=== PATIENT | female | born 1975 | race Two or more races ===

== ENCOUNTER 2021-07-09 10:20 | Inpatient (IN) | payer OTHER ==
[~2021-07-09] VITALS: Ht 149.9 cm; Wt 72.6 kg
[2021-07-09] MEDS ORDERED: ESCITALOPRAM OX10 MG PO (13:40)
== END 2021-07-29 12:07 | disposition home or self-care (01) | DRG 329 ==
LOC: ADM 11:45 → EDSTATUS 11:45 → SURH 07-14 11:45 → O/R 07-25 06:28 → SURH 07-25 06:28
PROVIDERS: Obstetrics & Gynecology Gynecologic Oncology; ADMIT Colon & Rectal Surgery; ATTEND Colon & Rectal Surgery
PROC: 0UT24ZZ Resection of Bilateral Ovaries, Percutaneous Endoscopic Approach (ICD-10-PCS; 2021-07-25)
PROC: 0UT74ZZ Resection of Bilateral Fallopian Tubes, Percutaneous Endoscopic Approach (ICD-10-PCS; 2021-07-25)
PROC: 0DBP4ZZ Excision of Rectum, Percutaneous Endoscopic Approach (ICD-10-PCS; 2021-07-25)
PROC: 07BC4ZZ Excision of Pelvis Lymphatic, Percutaneous Endoscopic Approach (ICD-10-PCS; 2021-07-25)
PROC: 0DTN4ZZ Resection of Sigmoid Colon, Percutaneous Endoscopic Approach (ICD-10-PCS; principal; 2021-07-25 20:30)
PROC: 0UT94ZZ Resection of Uterus, Percutaneous Endoscopic Approach (ICD-10-PCS; 2021-07-25 20:30)
DX: K57.20 Diverticulitis of large intestine with perforation and abscess without bleeding (principal); K65.8 Other peritonitis; N80.5 Endometriosis of intestine; K36 Other appendicitis; N73.6 Female pelvic peritoneal adhesions (postinfective); D25.1 Intramural leiomyoma of uterus; D25.2 Subserosal leiomyoma of uterus; N80.0 Endometriosis of uterus; N80.1 Endometriosis of ovary; N80.2 Endometriosis of fallopian tube; N72 Inflammatory disease of cervix uteri; D64.9 Anemia, unspecified; N80.4 Endometriosis of rectovaginal septum and vagina

== ENCOUNTER 2021-07-24 09:02 | Outpatient (CLI) | payer OTHER ==
[~2021-07-24 09:02] MED LIST: ESCITALOPRAM OX10 MG PO
== END 2021-07-24 09:12 | disposition home or self-care (01) ==
LOC: LAB 09:02
PROVIDERS: ATTEND Colon & Rectal Surgery
DX: Z20.828 Contact with and (suspected) exposure to other viral communicable diseases (principal)

== ENCOUNTER 2022-09-21 09:50 | Emergency (ER) | payer OTHER ==
[~2022-09-21] VITALS: Ht 149.9 cm; Wt 83.9 kg
[2022-09-21] MEDS ORDERED: CIPRO500 MG PO (14:08)
== END 2022-09-21 14:28 | disposition home or self-care (01) ==
LOC: ER 09:50
DX: N39.0 Urinary tract infection, site not specified (principal); I10 Essential (primary) hypertension